=== PATIENT | female | born 1980 | race Caucasian/White ===

== ENCOUNTER 2021-11-29 07:48 | Inpatient (IN) | payer BC, OTHER ==
[2021-11-23 12:49] VITALS: BMI 29.4
[2021-11-24 13:59] LABS: Hemoglobin 13.6 g/dL (12.0-15.5); Mean Corpuscular HGB CONC 33.6 g/dL (32.0-36.0); Mean Corpuscular Volume 83.5 fl (81.6-98.3); Mean Platelet Volume 10.9 fl (7.4-10.4); Platelet Count 259 10x3/uL (150-450); RBC Distribution Width 12.2 % (11.5-14.5); Red Blood Cell (RBC) Count 4.85 10x6/uL (3.90-5.03); White Blood Cell (WBC) Count 5.5 10x3/uL (3.5-10.5)
[2021-11-24 14:19] LABS: BHCG - Serum Negative (NEGATIVE); Pregs Control Background? CLEAR/WHITE (CLR/WHITE); Pregs Control Bar Appear? YES (CONTROL BAR)
[2021-11-29] MEDS ORDERED: Gabapentin 300 MG CAP ONE (07:57)
[2021-11-29] MEDS ORDERED: Famotidine/PF 20 mg/2ml Vial ONE (07:58)
[2021-11-29] MEDS ORDERED: CeleCOXIB 100 MG CAP ONE (07:58)
[2021-11-29] MEDS ORDERED: EPINEPHrine 1 MG/ML AMP ONE (08:34)
[2021-11-29] MEDS ORDERED: Bupivacaine PF 0.5% 30 ML VIAL ONE (08:34)
[2021-11-29] MEDS ORDERED: Lidocaine 1% w/Epinephrine 1:100K 20 ML VIAL ONE (08:41)
[2021-11-29] MEDS ORDERED: Midazolam HCl 2 mg/2 ml Vial ONE (08:50)
[2021-11-29] MEDS ORDERED: PROPOFOL 20 ML ONE (09:12)
[2021-11-29] MEDS ORDERED: Rocuronium Bromide 10 MG/ML (10ML VIAL) ONE (09:12)
[2021-11-29] MEDS ORDERED: Ondansetron PF 4 MG/2 ML Vial ONE (09:12)
[2021-11-29] MEDS ORDERED: Lidocaine 1% PF 5 ML VIAL ONE (09:12)
[2021-11-29] MEDS ORDERED: Dexamethasone 4 mg/ml Vial ONE (09:12)
[2021-11-29] MEDS ORDERED: Fentanyl 100 MCG/2 ML VIAL ONE ×2 (09:12→11:40)
[2021-11-29] MEDS ORDERED: CEFAZOLIN 2 GM VIAL ONE (09:18)
[2021-11-29] MEDS ORDERED: Glycopyrrolate 0.2 MG/ML 5 ML SYRINGE ONE (10:17)
[2021-11-29] MEDS ORDERED: Meperidine HCl/PF 25 MG/ML VIAL ONE (10:44)
[2021-11-29] MEDS ORDERED: Fentanyl 100 MCG/2 ML VIAL SLOW IVP PRN (11:08)
[2021-11-29] MEDS ORDERED: Bisacodyl 10 MG SUPP PR PRN (11:08)
[2021-11-29] MEDS ORDERED: Ondansetron PF 4 MG/2 ML Vial IVP PRN (11:08)
[2021-11-29] MEDS ORDERED: diphenhydrAMINE 25 MG CAP PO PRN (11:08)
[2021-11-29] MEDS ORDERED: Promethazine HCl 25 MG/ML VIAL IM PRN (11:08)
[2021-11-29] MEDS ORDERED: HYDROcodone/Acetaminophen 5/325 mg Tablet PO PRN ×2 (11:08)
[2021-11-29] MEDS ORDERED: traMADol HCl 50 MG TAB PO PRN (11:08)
[2021-11-29] MEDS ORDERED: Simethicone Chewable 80 MG TAB PO PRN (11:08)
[2021-11-29] MEDS ORDERED: Zolpidem Tartrate 5 MG TAB PO PRN (11:08)
[2021-11-29] MEDS ORDERED: Ventolin HFA Inhaler 60 PUFF INHALER INH PRN (11:11)
[2021-11-29] MEDS ORDERED: Ketorolac Tromethamine 30 MG/ML VIAL ONE (11:39)
[2021-11-29] MEDS: Sodium Chloride 0.9% 1,000 ML IV SCH ×2 (17:53→23:50)
[2021-11-29] MEDS: Ketorolac Tromethamine 30 MG/ML VIAL IVP SCH ×3 (17:54→23:49)
[2021-11-29] MEDS ORDERED: Rosuvastatin 10 MG TAB PO SCH (21:00)
[2021-11-30 05:02] LABS: Mean Corpuscular HGB CONC 33.4 g/dL (32.0-36.0); Mean Corpuscular Hemoglobin 28.4 pg (27.0-33.0); Mean Platelet Volume 11.7 fl (7.4-10.4); Platelet Count 219 10x3/uL (150-450); RBC Distribution Width 12.6 % (11.5-14.5); Red Blood Cell (RBC) Count 3.87 10x6/uL (3.90-5.03); White Blood Cell (WBC) Count 8.6 10x3/uL (3.5-10.5)
[2021-11-30] MEDS: Ibuprofen 800 MG TAB PO SCH ×2 (06:30→15:15)
[2021-11-30] MEDS ORDERED: Ferrous Sulfate 325 MG TAB PO SCH (09:00)
[2021-11-30 12:36] VITALS: BP 110/56; TEMP 98.6
[2021-11-30] MEDS: Sodium Chloride 0.9% 1,000 ML IV SCH (12:55)
== END 2021-11-30 15:55 | disposition home or self-care (01) | DRG 743 ==
LOC: CSHSDC 07:48 → CSHPP 13:46
PROVIDERS: ADMIT Obstetrics & Gynecology; ATTEND Obstetrics & Gynecology
PROC: 0UT94ZZ Resection of Uterus, Percutaneous Endoscopic Approach (ICD-10-PCS; principal; 2021-11-29)
PROC: 0UT74ZZ Resection of Bilateral Fallopian Tubes, Percutaneous Endoscopic Approach (ICD-10-PCS; 2021-11-29)
PROC: 0TSD4ZZ Reposition Urethra, Percutaneous Endoscopic Approach (ICD-10-PCS; 2021-11-29)
PROC: 8E0W4CZ Robotic Assisted Procedure of Trunk Region, Percutaneous Endoscopic Approach (ICD-10-PCS; 2021-11-29)
PROC: 0TJB8ZZ Inspection of Bladder, Via Natural or Artificial Opening Endoscopic (ICD-10-PCS; 2021-11-29)
DX: N92.1 Excessive and frequent menstruation with irregular cycle (principal); N39.3 Stress incontinence (female) (male); N92.0 Excessive and frequent menstruation with regular cycle; Z20.822 Contact with and (suspected) exposure to COVID-19; D25.9 Leiomyoma of uterus, unspecified; Z88.0 Allergy status to penicillin; J45.909 Unspecified asthma, uncomplicated; E78.5 Hyperlipidemia, unspecified; Z79.899 Other long term (current) drug therapy
CPT/HCPCS: 36415; 84703; 85027; 86850; 86900; 86901; 87811; 88307; C1781; J0171; J0690; J1100; J1885; J2175; J2250; J2405; J2704; J3010; J7050; S0020; S0028